=== PATIENT | female | born 1985 | race Caucasian/White ===

== ENCOUNTER 2018-01-07 02:58 | Inpatient (IN) | payer BC ==
[2018-01-07 04:36] LABS: BHCG - Serum Negative (NEGATIVE); Pregs Control Background? CLEAR/WHITE (CLR/WHITE); Pregs Control Bar Appear? YES (CONTROL BAR)
[2018-01-07] MEDS ORDERED: Ketorolac Tromethamine 30 MG/ML VIAL ONE (04:36)
[2018-01-07 04:54] LABS: ALT (SGPT) 276 U/L (8-55); AST (SGOT) 243 U/L (5-34); Albumin 4.2 g/dL (3.5-5.0); Alkaline Phosphatase 420 U/L (40-150); Anion Gap 15 mmol/L (10-20); BUN (Urea Nitrogen) 8 mg/dL (7.0-18.7); Bilirubin, Total 3.5 mg/dL (0.2-1.2); Calc. Creatinine Clearance 0 mL/min (70-130); Calcium 9.6 mg/dL (7.8-10.44); Carbon Dioxide 23 mmol/L (22-29); Chloride 104 mmol/L (98-107); Estimated GFR-MDRD 57; Globulin 3.9 g/dL (2.4-3.5); Glucose 109 mg/dL (70-105); Potassium 4.8 mmol/L (3.5-5.1); Protein, Total 8.1 g/dL (6.0-8.3); Sodium 137 mmol/L (136-145)
[2018-01-07 05:12] LABS: Band 13 % (5-11); Eosinophils 5 % (0-10); Lymphocytes 38 % (21-51); MDiff Complete? YES; Mean Corpuscular HGB CONC 32.4 g/dL (32.0-36.0); Mean Corpuscular Hemoglobin 27.6 pg (27.0-31.0); Mean Corpuscular Volume 85.1 fL (78.0-98.0); Mean Platelet Volume 8.4 fL (7.4-10.4); Metamyelocyte 1 % (0-0); Monocytes 17 % (0-10); Neutrophil 25 % (42-75); PLT Morphology Comment Appears Decreased; Platelet Count 115 thou/uL (130-400); RBC Distribution Width 12.8 % (11.5-14.5); RBC Morphology Normal; Red Blood Cell (RBC) Count 5.79 mill/uL (4.20-5.40); White Blood Cell (WBC) Count 4.7 thou/uL (4.8-10.8)
[2018-01-07] MEDS ORDERED: Ondansetron HCl/PF 4 MG/2 ML Vial ONE (06:57)
[2018-01-07 07:18] LABS: Bilirubin Moderate (Negative); Blood, Urine Large (Negative); Clarity CLEAR (Clear); Glucose, Urine (Dipstick) Negative (Negative); Leukocyte Negative (Negative); Nitrite Negative (Negative); Protein, Urine (Dipstick) Negative (Neg-Trace); Specific Gravity, Urine 1.009 (1.002-1.036); pH, Urine 7.5 (5.0-9.0)
[2018-01-07 07:23] LABS: Bacteria/HPF None Seen HPF (None Seen); Hyaline Casts/LPF 0-3 HYALINE CAST LPF (0-3 Hyaline); Pathc Cast-AUWi Flag 0.29 (0-2.49); Squamous Epithelial None Seen HPF (0-3); WBC/HPF None Seen HPF (0-3)
--- NOTE | 2018-01-07 07:40 | CT ---
CT ABDOMEN AND PELVIS WITHOUT CONTRAST: HISTORY: A 32-year-old female with fever, nausea, left-side abdominal pain. FINDINGS: Absence of oral and IV contrast reduces the sensitivity of the exam, particularly for evaluation of s olid organs involved. The lung bases are clear. No calcified gallstones are seen. No free air or free fluid is seen in th e abdomen or pelvis. A normal-appearing appendix is present. Uterus and ovaries are present. No calculi are seen in the kidneys, ureters, or the urinary bladder. No hydroureteral nephrosis is i dentified on either side. No acute osseous abnormalities are seen. The spleen measures 13.4 cm in l ength. IMPRESSION: 1. No CT evidence of urinary tract calculi/obstruction or appendicitis. 2. Mild splenomegaly. POS: [facility]
--- NOTE | 2018-01-07 07:44 | PDOC.FPRHP ---
- History of Present Illness Chief Complaint: Fever History of Present Illness: 32 F presents for fever lasting 3 days. Highest temp was 102.3F measured at home. Associated with left flank pain, fever, nausea, decreased appetite. Issue has mildly improved since it started. Fever has been subsiding. She saw an outside facility which diagnosis her with possible UTI and started her on bactrim, currently day 2 of 3. Urine culture result on 01/05/18 showed normal salty only. Her fever is relieved with ibuprofen and tylenol. Nothing has exacerbate her symptom. She denies sick family members, sick contact, recent travel or eating unusual food. In ER, she had CT of abd and US of gallbladder that was read as normal. ED Course: Received zofran, ketorolac and 1 L NS - Home Medications Comments: She states she takes Pepcid and tums PRN GERD symptoms. Imitrex PRN migraine. Tylenol/ibuprofen PRN fever. Bactrim, unknown dosage, currently day 2/3 for possible UTI - History PMHx: Migraine, gerd PSHx: Elkins tooth removal FHx: Deny family history of GI disease Social: Denies tobacco, drug use. Endorse alcohol use only socially. - Review of Systems General: reports: fever/chills, weight/appetite/sleep changes Eyes: denies: vision changes ENT: denies: nasal congestion, rhinorrhea Respiratory: denies: cough, shortness of breath Cardiovascular: denies: chest pain, palpitation Gastrointestinal: denies: nausea, vomiting, diarrhea Genitourinary: reports: discharge (Endorse brown discharge, and LMP this 01/01/18) . denies: dysuria Skin: denies: rashes, itching Musculoskeletal: denies: pain, arthritis/arthralgias Neurological: denies: numbness, weakness Psychological: denies: anxiety, depression - Vital signs BP: [127/64] HR: [89] RR: [18] Tmax: 98.1] Pox: 95% on ra Wt: 147 kg - Physical Exam Constitutional: NAD, awake, alert and oriented HEENT: normocephalic and atraumatic, PERRLA, conjunctiva clear, no scleral icterus Neck: supple, trachea midline Chest: no-tender to palpation Heart: RRR, normal S1/S2 Lungs: CTAB, no respiratory distress Abdomen: soft, other (Tender to palpation throughout, mainly left upper quadrant ) Neurological: no focal deficit Skin: no rash/lesions, good turgor Heme/Lymphatic: no unusual bruising or bleeding Psychiatric: normal mood and affect, good judgment and insight, intact recent and remote memory FMR H&P: Results - Labs Result Diagrams: 01/07/18 04:23 01/07/18 04:23 Lab results: WBC 4.7 thou/uL (4.8-10.8) L 01/07/18 04:23 Hgb 16.0 g/dL (12.0-16.0) 01/07/18 04:23 Hct 49.2 % (36.0-47.0) H 01/07/18 04:23 MCV 85.1 fL (78.0-98.0) 01/07/18 04:23 Plt Count 115 thou/uL (130-400) L 01/07/18 04:23 Band Neuts % (Manual) 13 % (5-11) H 01/07/18 04:23 Sodium 137 mmol/L (136-145) 01/07/18 04:23 Potassium 4.8 mmol/L (3.5-5.1) 01/07/18 04:23 Chloride 104 mmol/L (98-107) 01/07/18 04:23 Carbon Dioxide 23 mmol/L (22-29) 01/07/18 04:23 BUN 8 mg/dL (7.0-18.7) 01/07/18 04:23 Creatinine 1.11 mg/dL (0.6-1.1) H 01/07/18 04:23 Glucose 109 mg/dL (70-105) H 01/07/18 04:23 Lactic Acid 1.0 mmol/L (0.5-2.2) 01/07/18 04:23 Calcium 9.6 mg/dL (7.8-10.44) 01/07/18 04:23 Total Bilirubin 3.5 mg/dL (0.2-1.2) H 01/07/18 04:23 AST 243 U/L (5-34) H 01/07/18 04:23 ALT 276 U/L (8-55) H 01/07/18 04:23 Alkaline Phosphatase 420 U/L (40-150) H 01/07/18 04:23 Serum Total Protein 8.1 g/dL (6.0-8.3) 01/07/18 04:23 Albumin 4.2 g/dL (3.5-5.0) 01/07/18 04:23 Urine Ketones Negative mg/dL (Negative) 01/07/18 06:13 Urine Blood Large (Negative) H 01/07/18 06:13 Urine Nitrite Negative (Negative) 01/07/18 06:13 Ur Leukocyte Esterase Negative (Negative) 01/07/18 06:13 Urine RBC 7-10 HPF (0-3) H 01/07/18 06:13 Urine WBC None Seen HPF (0-3) 01/07/18 06:13 Ur Squamous Epith Cells None Seen HPF (0-3) 01/07/18 06:13 Urine Bacteria None Seen HPF (None Seen) 01/07/18 06:13 FMR H&P: A/P - Problem List (1) Elevated liver function tests Current Visit: Yes Status: Acute Code(s): R94.5 - ABNORMAL RESULTS OF LIVER FUNCTION STUDIES Assessment and Plan: Suspect acute hepatitis as cause of fever and abd pain. Exam is unexpected with left sided pain however Plan, obtain liver function test. Obtain rpr and HIV as well due to being at increased risk. (2) OBIE (acute kidney injury) Current Visit: Yes Status: Acute Code(s): N17.9 - ACUTE KIDNEY FAILURE, UNSPECIFIED Assessment and Plan: Treat with IV fluid resuscitation. Likely due to dehydration with decreased PO intake. (3) GERD (gastroesophageal reflux disease) Current Visit: Yes Status: Acute Code(s): K21.9 - GASTRO-ESOPHAGEAL REFLUX DISEASE WITHOUT ESOPHAGITIS Assessment and Plan: Known chronic issue. COntinue pepcid/tums. Unlikely to be cause of current problem, CT scan did not note perf. (4) Migraine Current Visit: Yes Status: Acute Code(s): G43.909 - MIGRAINE, UNSP, NOT INTRACTABLE, WITHOUT STATUS MIGRAINOSUS Assessment and Plan: Will treat with ibuprofen as needed. Stable issue. Patient not with headache at this time. FMR H&P: Upper Level - Plan Date/Time: 01/07/18 0743 I, [], have evaluated this patient and agree with findings/plan as outlined by application development intern resident. Pertinent changes/additions are listed here. Attending Addendum - Attending Addendum Date/Time: 01/07/18 3342 I personally evaluated the patient and discussed the management with Drs. Erickson and Maryan. I agree with the History, Examination, Assessment and Plan documented above with any addition or exceptions noted below. Will check CMV/EBV/Influenza. Patient is stable for outpt workup.
[2018-01-07] MEDS ORDERED: Lactated Ringer's 1,000 ML IV SCH (08:40)
[2018-01-07] MEDS ORDERED: Ibuprofen 600 MG TAB PO PRN (08:40)
[2018-01-07] MEDS ORDERED: Ondansetron ODT 4 MG TAB PO PRN (08:40)
[2018-01-07] MEDS ORDERED: Enoxaparin Sodium 40 MG/0.4 ML SYRINGE SC SCH (09:00)
--- NOTE | 2018-01-07 10:25 | ULT ---
PRELIMINARY REPORT/[facility]/EMERGENTY AFTER-HOURS PROCEDURE US Abdomen Limited, Right Upper Quadrant CLINICAL HISTORY: 32 years old, female; Abnormal findings; Abnormal lab test; Elevated liver enzymes TECHNIQUE: Real-time ultrasound of the right upper quadrant with image documentation. COMPARISON: [facility] Protocol 2018-01-07 05:10 FINDINGS: Liver: Unremarkable. Gallbladder: Contracted gallbladder. Unremarkable. Mild wall thickening augmented under distention. N o stones identified. Negative Lopez sign reported. Common bile duct: Unremarkable. No dilation. Pancreas: Visualized portion unremarkable. Right kidney: Normal. IMPRESSION: No acute findings. Thank you for allowing us to participate in the care of your patient. Dictated and Authenticated by: Francisco Aparicio MD 01/07/2018 7:27 AM Central Time ([place] & [place]) FINAL REPORT RIGHT UPPER QUADRANT ULTRASOUND: I agree with the preliminary report given by Dr. Francisco Aparicio of [facility]. POS: [facility]
[2018-01-07 10:32] LABS: Syphilis Antibody Nonreactive (Nonreactive); Syphilis Antibody Index 0.04 S/CO (<1.00 Non-Reactive)
[2018-01-07 10:34] LABS: HBSAB Concentration 0.46 mIU/mL; HBSAg Index 0.15 S/CO (0-0.99); HIV (1/2) Antibody/Antigen Non-Reactive (NonReactive); HIV 1/2 INDEX 0.11 S/CO (<1.00); Hep A IgM AB Non-Reactive (NonReactive); Hep A IgM S/CO 0.11 S/CO (0-0.79); Hep B Surf AB Non-Reactive (NonReactive); Hep B Surf Ag Non-Reactive S/CO (NonReactive); Hep C IgG Ab Non-Reactive (NonReactive); Hep C Index 0.25 S/CO (0-0.79)
[2018-01-07 10:51] VITALS: BMI 22.0
[2018-01-07 13:51] LABS: MONO NEGATIVE CONTROL ZONE White (Negative) (White); MONO POSITIVE CONTROL Pink Line (Positive) (PINK/RED); Mononucleosis POSITIVE (NEGATIVE)
[2018-01-07 16:45] VITALS: BP 113/72; TEMP 98.6
--- NOTE | 2018-01-08 01:56 | DIS-2 ---
DATE OF ADMISSION: 01/07/2018 DATE OF DISCHARGE: 01/07/2018 RESIDENT: Kirby Casillas DO ADMITTING ATTENDING: Dr. Mal Blackwell. DISCHARGE ATTENDING: Dr. Mal Blackwell. CONSULTATIONS: None. PROCEDURES: CT of abdomen and pelvis showing no evidence of urinary tract calcification or obstructi on or appendicitis, slight splenomegaly. Abdomen ultrasound showing no acute findings. PRIMARY DIAGNOSES: Mononucleosis, acute kidney injury. SECONDARY DIAGNOSES: Migraines, gastroesophageal reflux disease. DISCHARGE MEDICATIONS: Zofran. DISCONTINUED MEDICATIONS: None. HISTORY OF PRESENT ILLNESS AND HOSPITAL COURSE: This is a 32-year-old female presents for fever last ing more than 3 days. Highest temperature was 102.3 measured at home associated with left flank pain , fever, nausea, and decreased appetite probably mildly improved. Fever started subsiding upon admis roselyn. Patient was diagnosed outside facility with UTI and treated. Patient was admitted, received C T abdomen and pelvis and upper right gallbladder ultrasound and liver ultrasound. The patient's mono nucleosis test came back positive. Patient was discharged with Zofran as well as encouraged to drink fluids and take Tylenol, ibuprofen for symptom relief. Patient was instructed on ER precautions. DISPOSITION: Stable. DISCHARGE INSTRUCTIONS: 1. Location: Home. 2. Diet: As tolerated. 3. Activity: As tolerated. 4. Follow up with primary care physician in 1-2 weeks.
== END 2018-01-07 17:30 | disposition home or self-care (01) | DRG 866 ==
LOC: ERS 02:58 → T4-B 08:37
PROVIDERS: ADMIT Family Medicine; ATTEND Family Medicine
DX: B27.90 Infectious mononucleosis, unspecified without complication (principal); N17.9 Acute kidney failure, unspecified; K21.9 Gastro-esophageal reflux disease without esophagitis; G43.909 Migraine, unspecified, not intractable, without status migrainosus
CPT/HCPCS: 36415; 74176; 76705; 80053; 81003; 81015; 83605; 84703; 85025; 86308; 86706; 86709; 86780; 86803; 87040; 87086; 87340; 87389; 87798; 87804; 96361; 96374; 96375; J1650; J1885; J2405